=== PATIENT | female | born 1940 | race Two or more races ===

== ENCOUNTER 2020-06-02 12:33 | Emergency (ER) | payer OTHER ==
[~2020-06-02] VITALS: Ht 154.9 cm; Wt 40.8 kg
[2020-06-02 13:10] VITALS: BP 147/72
[2020-06-02 13:59] LABS: Basophils # (auto) 0.1 10 ^3/uL (0-0.2); Basophils % (auto) 0.9 % (0.0-2.0); Eosinophils # (auto) 0.4 10 ^3/uL (0-0.8); Eosinophils % (auto) 6.3 % (0.0-7.0); Hematocrit 36.1 % (36.0-46.0); Hemoglobin 12.1 g/dL (12.2-16.2); Lymphocytes # (auto) 2.1 10 ^3/uL (0.4-5.4); Mean Corpuscular Hemoglobin 30.6 pg (28.0-32.0); Mean Corpuscular Hgb Conc. 33.4 g/dL (32.0-36.0); Mean Corpuscular Volume 91.5 fL (80.0-100.0); Monocytes # (auto) 0.5 10 ^3/uL (0-1.3); Monocytes % (auto) 7.8 % (0.0-12.0); Neutrophils # (auto) 2.8 10 ^3/uL (1.6-8.6); Nucleated Red Blood Cells % 0.1 %; Platelet Count (auto) 380 10^3/uL (140-450); Red Blood Cells 3.95 10^6/uL (4.0-5.20); Red Cell Distribution Width 13.9 % (11.8-14.3); White Blood Cell 5.8 10^3/uL (4.4-10.8)
[2020-06-02 14:16] LABS: Albumin 3.8 g/dL (3.4-5.0); BUN/Creatinine Ratio 9.3; Calcium 8.8 mg/dL (8.5-10.1)
[2020-06-02 14:19] LABS: Bilirubin, Total 0.7 mg/dL (0.2-1.0); Total Protein 6.7 g/dL (6.4-8.2)
== END 2020-06-02 16:20 | disposition home or self-care (01) ==
LOC: ER 12:33
DX: M79.605 Pain in left leg (principal); J44.9 Chronic obstructive pulmonary disease, unspecified; E78.5 Hyperlipidemia, unspecified; I10 Essential (primary) hypertension; Z87.891 Personal history of nicotine dependence
CPT/HCPCS: 36415; 80053; 84484; 85025; 93970

== ENCOUNTER 2020-10-11 17:05 | Emergency (ER) | payer OTHER ==
[~2020-10-11] VITALS: Ht 154.9 cm; Wt 49.9 kg
[2020-10-11 17:21] VITALS: BP 104/72
[2020-10-11] MEDS ORDERED: cefTRIAXone SOD 1,000 MG VL ONE (17:40)
[2020-10-11] MEDS ORDERED: cefTRIAXone W LIDOCAINE 1 GM IM IM ONE (17:45)
[2020-10-11] MEDS ORDERED: CLINDAMYCIN 600 MG/4 ML VL IM ONE ×2 (17:45→18:00)
[2020-10-11] MEDS ORDERED: LIDOCAINE 1% HCL (LOCAL ANESTH.) INJ 20ML MDV ONE (17:53)
== END 2020-10-11 18:17 | disposition home or self-care (01) ==
LOC: ER 17:08
DX: L03.115 Cellulitis of right lower limb (principal); J44.9 Chronic obstructive pulmonary disease, unspecified; E78.5 Hyperlipidemia, unspecified; I10 Essential (primary) hypertension; Z87.891 Personal history of nicotine dependence; Z88.0 Allergy status to penicillin
CPT/HCPCS: 96372; 99284; J0696; J2001

== ENCOUNTER 2021-09-06 09:53 | Emergency (ER) | payer OTHER ==
[~2021-09-06] VITALS: Ht 157.5 cm; Wt 41.7 kg
[2021-09-06] MEDS ORDERED: IPRATROPIUM BROM 0.5 MG/2.5ML INH SOL HHN ONE (10:30)
[2021-09-06] MEDS ORDERED: methylPREDNISolone SOD SUCC 125 MG/2 ML VL IV ONE (10:30)
[2021-09-06] MEDS ORDERED: ALBUTEROL SULF 2.5 MG/0.5ML(0.5%) NEB SOLN HHN ONE (10:30)
[2021-09-06 10:32] LABS: Eosinophils # (auto) 0.1 10 ^3/uL (0-0.8); Eosinophils % (auto) 1.6 % (0.0-7.0); Lymphocytes # (auto) 1.2 10 ^3/uL (0.4-5.4); Monocytes # (auto) 0.4 10 ^3/uL (0-1.3)
[2021-09-06 10:33] LABS: Basophils # (auto) 0.1 10 ^3/uL (0-0.2); Basophils % (auto) 0.8 % (0.0-2.0); Hematocrit 31.1 % (36.0-46.0); Lymphocytes % (auto) 18.8 % (10.0-50.0); Mean Corpuscular Hemoglobin 24.8 pg (28.0-32.0); Mean Corpuscular Hgb Conc. 32.2 g/dL (32.0-36.0); Mean Corpuscular Volume 76.8 fL (80.0-100.0); Monocytes % (auto) 6.6 % (0.0-12.0); Neutrophils # (auto) 4.8 10 ^3/uL (1.6-8.6); Neutrophils % (auto) 72.2 % (37.0-80.0); Nucleated Red Blood Cells % 0.1 %; Red Blood Cells 4.05 10^6/uL (4.0-5.20); Red Cell Distribution Width 16.1 % (11.8-14.3); White Blood Cell 6.6 10^3/uL (4.4-10.8)
[2021-09-06 10:49] LABS: Albumin 3.6 g/dL (3.4-5.0); Calcium 8.9 mg/dL (8.5-10.1); Magnesium 2.3 mg/dL (1.6-2.6); Potassium 3.8 mmol/L (3.5-5.1)
[2021-09-06 10:54] LABS: BUN/Creatinine Ratio 6.3; Bilirubin, Total 0.7 mg/dL (0.2-1.0); Total Protein 6.8 g/dL (6.4-8.2)
[2021-09-06 11:56] LABS: Urine Bacteria NONE SEEN /hpf (None Seen); Urine Blood TRACE /uL (Negative); Urine Specific Gravity 1.004 (1.001-1.035); Urine WBC 2 /hpf (0 - 5)
[2021-09-06 12:43] VITALS: BP 116/63
[2021-09-06] MEDS ORDERED: LORazepam 2MG/ML-1ML VIAL IV ONE (13:00)
[2021-09-06] MEDS ORDERED: METH4PAK PO (13:04)
== END 2021-09-06 13:03 | disposition home or self-care (01) ==
LOC: ER 09:53 → EDBD 09:53 → ER 13:03
DX: J44.1 Chronic obstructive pulmonary disease with (acute) exacerbation (principal); F41.9 Anxiety disorder, unspecified; E78.5 Hyperlipidemia, unspecified; Z90.710 Acquired absence of both cervix and uterus
CPT/HCPCS: 36415; 71045; 80053; 81001; 83605; 83735; 83880; 84484; 85025; 87040; 93005; 94644; 96374; 99285; J2930; J7644

== ENCOUNTER 2022-01-13 02:34 | Inpatient (IN) | payer OTHER ==
[~2022-01-13] VITALS: Ht 154.9 cm; Wt 44.6 kg
[2022-01-13] VITALS (10 sets, daily range): BP systolic 78–168; BP diastolic 37–91
[~2022-01-13 02:34] MED LIST: METH4PAK PO
[2022-01-13 03:16] LABS: Basophils # (auto) 0 10 ^3/uL (0-0.2); Eosinophils # (auto) 0.1 10 ^3/uL (0-0.8); Lymphocytes # (auto) 1.3 10 ^3/uL (0.4-5.4); Monocytes # (auto) 0.6 10 ^3/uL (0-1.3); White Blood Cell 4.4 10^3/uL (4.4-10.8)
[2022-01-13 03:17] LABS: Basophils % (auto) 0.9 % (0.0-2.0); Eosinophils % (auto) 1.8 % (0.0-7.0); Hematocrit 21.3 % (36.0-46.0); Lymphocytes % (auto) 29.9 % (10.0-50.0); Mean Corpuscular Hemoglobin 21.7 pg (28.0-32.0); Mean Corpuscular Volume 72.3 fL (80.0-100.0); Monocytes % (auto) 14.1 % (0.0-12.0); Neutrophils # (auto) 2.3 10 ^3/uL (1.6-8.6); Neutrophils % (auto) 53.3 % (37.0-80.0); Red Blood Cells 2.95 10^6/uL (4.0-5.20); Red Cell Distribution Width 15.1 % (11.8-14.3)
[2022-01-13 03:26] LABS: Hemoglobin 6.4 g/dL (12.2-16.2)
[2022-01-13 03:30] LABS: INR 1.02 (0.9-1.15); Partial Thromboplastin Time 28.8 sec (24.6-33.4)
[2022-01-13 03:34] LABS: Albumin 3.6 g/dL (3.4-5.0); BUN/Creatinine Ratio 11.1; Calcium 8.5 mg/dL (8.5-10.1); Magnesium 2.4 mg/dL (1.6-2.6); Potassium 3.5 mmol/L (3.5-5.1)
[2022-01-13 03:37] LABS: Bilirubin, Total 0.4 mg/dL (0.2-1.0); Total Protein 6.3 g/dL (6.4-8.2)
[2022-01-13] MEDS ORDERED: IPRATROPIUM BROM 0.5 MG/2.5ML INH SOL NEB ONE ×2 (03:45→06:15)
[2022-01-13] MEDS ORDERED: DexAMETHasone SOD PHOS 10MG/1ML VIAL INJ IV ONE (03:45)
[2022-01-13] MEDS ORDERED: ALBUTEROL SULF 2.5 MG/0.5ML(0.5%) NEB SOLN NEB ONE ×2 (03:45→06:15)
[2022-01-13] MEDS: MAGNESIUM SULFATE 1GM/100ML 100 ML IV SCH ×2 (04:12→06:41)
[2022-01-13 05:43] LABS: Urine Bacteria NONE SEEN /hpf (None Seen); Urine Blood Negative /uL (Negative); Urine Specific Gravity 1.019 (1.001-1.035); Urine WBC 6 /hpf (0 - 5)
[2022-01-13] MEDS ORDERED: LORazepam 2MG/ML-1ML VIAL IV ONE ×3 (06:45→15:00)
[2022-01-13] MEDS ORDERED: LORazepam 0.5 MG TAB PO ONE (11:30)
[2022-01-13] MEDS ORDERED: NITROGLYCERIN 0.4 MG SL TAB SL PRN (12:15)
[2022-01-13] MEDS ORDERED: MORPHINE SULFATE INJ 2 MG/ml SYRG IV PRN (12:15)
[2022-01-13] MEDS ORDERED: PANTOPRAZOLE 40 MG/10 ML VIAL INJ IV ONE (12:30)
[2022-01-13] MEDS ORDERED: AZITHROMYCIN 500MG/ 250ML 250 ML IV ONE (12:30)
[2022-01-13] MEDS ORDERED: LEVO75TA6 PO (12:52)
[2022-01-13] MEDS ORDERED: hydrALAZINE HCL 20 MG/ML VL IV PRN (13:00)
[2022-01-13] MEDS: SODIUM CHLORIDE 0.9% 1,000 ML IV SCH (13:03)
[2022-01-13] MEDS ORDERED: HALOPERIDOL LACTATE 5 MG/ML INJ VIAL ONE (13:27)
[2022-01-13] MEDS ORDERED: HALOPERIDOL LACTATE 5 MG/ML INJ VIAL IM ONE (13:45)
[2022-01-13 13:50] LABS: Cholesterol 221 mg/dL (< 200); HDL Cholesterol 80 mg/dL (40-59); LDL Cholesterol 131 mg/dL (< 100); Triglycerides 82 mg/dL (< 150)
[2022-01-13] MEDS: metroNIDAZOLE 500MG/100ML 100 ML IV SCH ×2 (14:39→22:21)
[2022-01-13] MEDS ORDERED: SUCCINYLCHOLINE CHLORIDE 20 MG/ML 10ML VIAL IV ONE (17:15)
[2022-01-13] MEDS ORDERED: ETOMIDATE (2MG/ML) 20ML VIAL IV ONE (17:15)
[2022-01-13] MEDS ORDERED: PROPOFOL 100 ML IV ONE (17:25)
[2022-01-13] MEDS ORDERED: ROCURONIUM 10MG/ML 10ML VIAL IV ONE (17:30)
[2022-01-13] MEDS ORDERED: PROPOFOL 100 ML IV SCH (17:30)
[2022-01-13] MEDS ORDERED: ALBUTEROL SULF 2.5 MG/0.5ML(0.5%) NEB SOLN NEB SCH (18:00)
[2022-01-13] MEDS ORDERED: IPRATROPIUM BROM 0.5 MG/2.5ML INH SOL NEB SCH (18:00)
[2022-01-13 19:19] LABS: Hematocrit 30.3 % (36.0-46.0); Hemoglobin 9.5 g/dL (12.2-16.2)
[2022-01-13] MEDS: PANTOPRAZOLE 40 MG/10 ML VIAL INJ IV SCH (22:20)
[2022-01-13] MEDS: methylPREDNISolone SOD SUCC 125 MG/2 ML VL IV SCH (22:20)
[2022-01-14] VITALS (20 sets, daily range): BP systolic 93–130; BP diastolic 49–66
[2022-01-14] MEDS: IPRATROPIUM BROM 0.5 MG/2.5ML INH SOL NEB SCH ×4 (00:18→18:20)
[2022-01-14] MEDS: ALBUTEROL SULF 2.5 MG/0.5ML(0.5%) NEB SOLN NEB SCH ×4 (00:18→18:20)
[2022-01-14] MEDS ORDERED: MIDAZOLAM DRIP 50 mg/50mL 50 ML IV ONE (03:25)
[2022-01-14] MEDS: MIDAZOLAM DRIP 50 mg/50mL 50 ML IV SCH ×3 (03:29→21:12)
[2022-01-14] MEDS ORDERED: ACETAMINOPHEN 650 MG RECT SUPP PR PRN (05:15)
[2022-01-14] MEDS: SODIUM CHLORIDE 0.9% 1,000 ML IV SCH ×2 (05:43→22:15)
[2022-01-14] MEDS: metroNIDAZOLE 500MG/100ML 100 ML IV SCH (06:08)
[2022-01-14 07:14] LABS: Basophils # (auto) 0 10 ^3/uL (0-0.2); Basophils % (auto) 0.1 % (0.0-2.0); Eosinophils # (auto) 0 10 ^3/uL (0-0.8); Hematocrit 25.4 % (36.0-46.0); Hemoglobin 7.9 g/dL (12.2-16.2); Lymphocytes # (auto) 0.7 10 ^3/uL (0.4-5.4); Lymphocytes % (auto) 9.9 % (10.0-50.0); Mean Corpuscular Hemoglobin 23.2 pg (28.0-32.0); Mean Corpuscular Hgb Conc. 31.2 g/dL (32.0-36.0); Mean Corpuscular Volume 74.4 fL (80.0-100.0); Monocytes # (auto) 0.8 10 ^3/uL (0-1.3); Monocytes % (auto) 10.4 % (0.0-12.0); Neutrophils # (auto) 5.9 10 ^3/uL (1.6-8.6); Neutrophils % (auto) 79.6 % (37.0-80.0); Nucleated Red Blood Cells % 0.1 %; Red Blood Cells 3.42 10^6/uL (4.0-5.20); Red Cell Distribution Width 16.4 % (11.8-14.3); White Blood Cell 7.4 10^3/uL (4.4-10.8)
[2022-01-14 07:17] LABS: Albumin 3.1 g/dL (3.4-5.0); BUN/Creatinine Ratio 20.4; Bilirubin, Total 0.6 mg/dL (0.2-1.0); Potassium 3.8 mmol/L (3.5-5.1); Total Protein 5.9 g/dL (6.4-8.2)
[2022-01-14] MEDS: fentaNYL Drip 2500mCg/250mlNS 250 ML IV SCH ×2 (08:06→09:58)
[2022-01-14] MEDS: PANTOPRAZOLE 40 MG/10 ML VIAL INJ IV SCH ×2 (10:40→22:16)
[2022-01-14] MEDS: methylPREDNISolone SOD SUCC 125 MG/2 ML VL IV SCH (10:40)
[2022-01-14] MEDS: AZITHROMYCIN 500MG/ 250ML 250 ML IV SCH (10:41)
[2022-01-14] MEDS: LEVOTHYROXINE SODIUM 50 MCG TAB PO SCH (10:41)
[2022-01-14] MEDS: CEFEPIME 2 GM in SODIUM CHL 0.9% 50 ML IV SCH ×2 (13:46→22:16)
[2022-01-14] MEDS: methylPREDNISolone SOD SUCC 40 MG/ML VL IV SCH (22:16)
[2022-01-15] VITALS (105 sets, daily range): BP systolic 83–118; BP diastolic 37–61
[2022-01-15] MEDS: MIDAZOLAM DRIP 50 mg/50mL 50 ML IV SCH ×4 (04:20→21:50)
[2022-01-15 04:22] LABS: Calcium 8.1 mg/dL (8.5-10.1); Potassium 4.1 mmol/L (3.5-5.1)
[2022-01-15 04:25] LABS: BUN/Creatinine Ratio 34.1
[2022-01-15 04:33] LABS: % Iron Saturation 2.3 % (15-50)
[2022-01-15 04:34] LABS: Basophils # (auto) 0 10 ^3/uL (0-0.2); Basophils % (auto) 0.3 % (0.0-2.0); Eosinophils # (auto) 0 10 ^3/uL (0-0.8); Eosinophils % (auto) 0.1 % (0.0-7.0); Hematocrit 27.2 % (36.0-46.0); Lymphocytes # (auto) 0.5 10 ^3/uL (0.4-5.4); Lymphocytes % (auto) 6.7 % (10.0-50.0); Mean Corpuscular Hemoglobin 23.5 pg (28.0-32.0); Mean Corpuscular Hgb Conc. 29.4 g/dL (32.0-36.0); Mean Corpuscular Volume 79.9 fL (80.0-100.0); Monocytes # (auto) 0.5 10 ^3/uL (0-1.3); Neutrophils # (auto) 6.7 10 ^3/uL (1.6-8.6); Neutrophils % (auto) 85.9 % (37.0-80.0); Nucleated Red Blood Cells % 0.1 %; Red Blood Cells 3.41 10^6/uL (4.0-5.20); White Blood Cell 7.8 10^3/uL (4.4-10.8)
[2022-01-15] MEDS: CEFEPIME 2 GM in SODIUM CHL 0.9% 50 ML IV SCH ×3 (05:38→22:15)
[2022-01-15] MEDS: IPRATROPIUM BROM 0.5 MG/2.5ML INH SOL NEB SCH ×4 (06:55→18:18)
[2022-01-15] MEDS: ALBUTEROL SULF 2.5 MG/0.5ML(0.5%) NEB SOLN NEB SCH ×4 (06:55→18:18)
[2022-01-15] MEDS: fentaNYL Drip 2500mCg/250mlNS 250 ML IV SCH (07:25)
[2022-01-15] MEDS ORDERED: ACETAMINOPHEN 650 mg PER 20.3 mL UD GT PRN (09:45)
[2022-01-15] MEDS ORDERED: Jevity 1.2 Cal/Fiber 1 Liter GT SCH (09:45)
[2022-01-15] MEDS: AZITHROMYCIN 500MG/ 250ML 250 ML IV SCH (10:02)
[2022-01-15] MEDS: PANTOPRAZOLE 40 MG/10 ML VIAL INJ IV SCH ×2 (10:02→22:10)
[2022-01-15] MEDS: methylPREDNISolone SOD SUCC 40 MG/ML VL IV SCH ×2 (10:02→22:10)
[2022-01-15] MEDS: LEVOTHYROXINE SODIUM 50 MCG TAB PO SCH (10:02)
[2022-01-15] MEDS: SODIUM CHLORIDE 0.9% 1,000 ML IV SCH (14:30)
[2022-01-15] MEDS ORDERED: UMEC1AER IN (14:53)
[2022-01-16] VITALS (99 sets, daily range): BP systolic 94–181; BP diastolic 46–104
[2022-01-16] MEDS: IPRATROPIUM BROM 0.5 MG/2.5ML INH SOL NEB SCH ×4 (00:08→18:29)
[2022-01-16] MEDS: ALBUTEROL SULF 2.5 MG/0.5ML(0.5%) NEB SOLN NEB SCH ×4 (00:08→18:29)
[2022-01-16 04:23] LABS: Basophils # (auto) 0 10 ^3/uL (0-0.2); Basophils % (auto) 0.1 % (0.0-2.0); Eosinophils # (auto) 0 10 ^3/uL (0-0.8); Hemoglobin 8.6 g/dL (12.2-16.2); Mean Corpuscular Hemoglobin 23.6 pg (28.0-32.0); Monocytes # (auto) 0.3 10 ^3/uL (0-1.3); Monocytes % (auto) 3.8 % (0.0-12.0); Red Blood Cells 3.63 10^6/uL (4.0-5.20); White Blood Cell 8.6 10^3/uL (4.4-10.8)
[2022-01-16 04:26] LABS: Hematocrit 27.8 % (36.0-46.0); Lymphocytes # (auto) 0.5 10 ^3/uL (0.4-5.4); Lymphocytes % (auto) 5.4 % (10.0-50.0); Mean Corpuscular Hgb Conc. 30.8 g/dL (32.0-36.0); Mean Corpuscular Volume 76.5 fL (80.0-100.0); Neutrophils # (auto) 7.8 10 ^3/uL (1.6-8.6); Neutrophils % (auto) 90.7 % (37.0-80.0); Nucleated Red Blood Cells % 0.1 %; Red Cell Distribution Width 17.6 % (11.8-14.3)
[2022-01-16 04:28] LABS: BUN/Creatinine Ratio 36.4; Calcium 8.5 mg/dL (8.5-10.1); Potassium 4.6 mmol/L (3.5-5.1)
[2022-01-16] MEDS: CEFEPIME 2 GM in SODIUM CHL 0.9% 50 ML IV SCH ×2 (05:28→13:47)
[2022-01-16] MEDS: fentaNYL Drip 2500mCg/250mlNS 250 ML IV SCH (06:50)
[2022-01-16] MEDS: PANTOPRAZOLE 40 MG/10 ML VIAL INJ IV SCH ×2 (10:03→22:38)
[2022-01-16] MEDS: methylPREDNISolone SOD SUCC 40 MG/ML VL IV SCH ×2 (10:03→22:38)
[2022-01-16] MEDS: AZITHROMYCIN 500MG/ 250ML 250 ML IV SCH (10:04)
[2022-01-16] MEDS: LEVOTHYROXINE SODIUM 50 MCG TAB PO SCH (10:04)
[2022-01-16] MEDS: SODIUM CHLORIDE 0.9% 1,000 ML IV SCH (13:56)
[2022-01-16] MEDS ORDERED: EPINEPHrine HCL 0.5 ML NEB ONE (14:07)
[2022-01-16] MEDS ORDERED: EPINEPHrine HCL 0.5 ML NEB NEB ONE (14:15)
[2022-01-16] MEDS: ALBUTEROL SULF 2.5 MG/0.5ML(0.5%) NEB SOLN NEB PRN (14:28)
[2022-01-16] MEDS: IPRATROPIUM BROM 0.5 MG/2.5ML INH SOL NEB PRN (14:28)
[2022-01-16] MEDS ORDERED: MORPHINE SULFATE INJ 2 MG/ml SYRG ONE (14:40)
[2022-01-16] MEDS ORDERED: MORPHINE SULFATE INJ 2 MG/ml SYRG IV ONE (14:45)
[2022-01-16] MEDS ORDERED: AMIODARONE 450mg/250ml AE 250 ML IV ONE (15:54)
[2022-01-16] MEDS ORDERED: AMIODARONE HCL 150 MG in D5W 5% 100 ML IV ONE (16:00)
[2022-01-16] MEDS ORDERED: AMIODARONE 450mg/250ml AE 250 ML IV SCH (16:15)
[2022-01-16] MEDS ORDERED: AMIODARONE HCL (50 MG/ ML) 3 ML VIAL IV ONE (16:15)
[2022-01-16] MEDS: AMIODARONE 450mg/250ml AE 250 ML IV SCH (22:26)
[2022-01-17] VITALS (72 sets, daily range): BP systolic 111–180; BP diastolic 43–91
[2022-01-17] MEDS: CEFEPIME 2 GM in SODIUM CHL 0.9% 50 ML IV SCH ×3 (00:13→17:37)
[2022-01-17] MEDS: ALBUTEROL SULF 2.5 MG/0.5ML(0.5%) NEB SOLN NEB SCH ×4 (00:20→18:12)
[2022-01-17] MEDS: IPRATROPIUM BROM 0.5 MG/2.5ML INH SOL NEB SCH ×4 (00:20→18:12)
[2022-01-17] MEDS ORDERED: ONDANSETRON HCL 4 MG/2 ML VIAL ONE (00:34)
[2022-01-17] MEDS: ONDANSETRON HCL 4 MG/2 ML VIAL IV PRN ×2 (00:43→21:04)
[2022-01-17] MEDS: SODIUM CHLORIDE 0.9% 1,000 ML IV SCH ×2 (00:44→16:45)
[2022-01-17] MEDS: MIDAZOLAM DRIP 50 mg/50mL 50 ML IV SCH ×3 (01:30→20:47)
[2022-01-17 04:00] LABS: Basophils # (auto) 0 10 ^3/uL (0-0.2); Eosinophils # (auto) 0 10 ^3/uL (0-0.8); Lymphocytes # (auto) 0.3 10 ^3/uL (0.4-5.4); Lymphocytes % (auto) 2.1 % (10.0-50.0); Monocytes # (auto) 0.7 10 ^3/uL (0-1.3); Neutrophils # (auto) 12.1 10 ^3/uL (1.6-8.6); Nucleated Red Blood Cells % 0.1 %; Red Blood Cells 3.56 10^6/uL (4.0-5.20)
[2022-01-17 04:03] LABS: Hematocrit 27.7 % (36.0-46.0); Hemoglobin 8.3 g/dL (12.2-16.2); Mean Corpuscular Hemoglobin 23.2 pg (28.0-32.0); Mean Corpuscular Hgb Conc. 29.9 g/dL (32.0-36.0); Mean Corpuscular Volume 77.6 fL (80.0-100.0); Neutrophils % (auto) 92.9 % (37.0-80.0); Red Cell Distribution Width 18.2 % (11.8-14.3)
[2022-01-17 04:20] LABS: Potassium 4.6 mmol/L (3.5-5.1)
[2022-01-17] MEDS ORDERED: MORPHINE SULFATE INJ 2 MG/ml SYRG IV ONE ×2 (05:30→22:00)
[2022-01-17] MEDS ORDERED: FUROSEMIDE 40 MG/4 ML VIAL IV ONE (07:15)
[2022-01-17] MEDS: fentaNYL Drip 2500mCg/250mlNS 250 ML IV SCH (07:30)
[2022-01-17] MEDS ORDERED: ETOMIDATE (2MG/ML) 20ML VIAL IV ONE (07:55)
[2022-01-17] MEDS ORDERED: fentaNYL Drip 2500mCg/250mlNS 250 ML IV ONE (07:55)
[2022-01-17] MEDS ORDERED: SUCCINYLCHOLINE CHLORIDE 20 MG/ML 10ML VIAL IV ONE (07:56)
[2022-01-17] MEDS ORDERED: LORazepam 2MG/ML-1ML VIAL IV ONE (09:15)
[2022-01-17] MEDS ORDERED: LORazepam 2MG/ML-1ML VIAL ONE (09:16)
[2022-01-17] MEDS ORDERED: FUROSEMIDE 20 MG/2 ML VIAL IV ONE (09:30)
[2022-01-17] MEDS: PANTOPRAZOLE 40 MG/10 ML VIAL INJ IV SCH ×2 (09:36→22:19)
[2022-01-17] MEDS: methylPREDNISolone SOD SUCC 40 MG/ML VL IV SCH ×2 (09:36→22:20)
[2022-01-17] MEDS: LEVOTHYROXINE SODIUM 50 MCG TAB PO SCH (10:00)
[2022-01-17] MEDS: AMIODARONE 450mg/250ml AE 250 ML IV SCH (12:45)
[2022-01-17] MEDS ORDERED: HYALURONIDASE 150 UNIT/1 ML SUBCUT ONE ×2 (14:30→14:45)
[2022-01-17 15:27] LABS: INR 1.17 (0.9-1.15); Partial Thromboplastin Time 25.9 sec (24.6-33.4)
[2022-01-17] MEDS ORDERED: LIDOCAINE 1% (LOCAL ANESTH.) PF 5ml SDV ID ONE (16:45)
[2022-01-17] MEDS ORDERED: ACETAMINOPHEN 650 MG RECT SUPP PR PRN (18:45)
[2022-01-17] MEDS ORDERED: DICLOFENAC GEL TOP PRN (18:45)
[2022-01-17] MEDS: SODIUM CHLOR 0.9% PF (SALINE LOCK) 10ML VIAL/SYR IV SCH (22:19)
[2022-01-18] VITALS (32 sets, daily range): BP systolic 106–151; BP diastolic 50–75
[2022-01-18] MEDS: ALBUTEROL SULF 2.5 MG/0.5ML(0.5%) NEB SOLN NEB SCH ×4 (00:21→19:18)
[2022-01-18] MEDS: IPRATROPIUM BROM 0.5 MG/2.5ML INH SOL NEB SCH ×4 (00:21→19:19)
[2022-01-18] MEDS: CEFEPIME 2 GM in SODIUM CHL 0.9% 50 ML IV SCH ×2 (02:22→06:00)
[2022-01-18] MEDS: fentaNYL Drip 2500mCg/250mlNS 250 ML IV SCH (07:30)
[2022-01-18] MEDS: MIDAZOLAM DRIP 50 mg/50mL 50 ML IV SCH (07:30)
[2022-01-18] MEDS: AMIODARONE 450mg/250ml AE 250 ML IV SCH (07:30)
[2022-01-18] MEDS: SODIUM CHLOR 0.9% PF (SALINE LOCK) 10ML VIAL/SYR IV SCH (09:52)
[2022-01-18] MEDS: PANTOPRAZOLE 40 MG/10 ML VIAL INJ IV SCH (09:52)
[2022-01-18] MEDS: methylPREDNISolone SOD SUCC 40 MG/ML VL IV SCH (09:52)
[2022-01-18] MEDS: LEVOTHYROXINE SODIUM 50 MCG TAB PO SCH (09:53)
[2022-01-18] MEDS ORDERED: ENOXAPARIN SOD 40 MG/0.4 ML SYRINGE SC ONE (11:15)
[2022-01-18] MEDS ORDERED: METOPROLOL TARTRATE 50 MG TAB PO ONE (11:15)
[2022-01-18] MEDS ORDERED: levoFLOXacin 250 MG TAB PO ONE (11:15)
[2022-01-18] MEDS ORDERED: NICOTINE 14 MG/24HR TOPICAL PATCH TD ONE (11:45)
[2022-01-18] MEDS ORDERED: NICOTINE 7MG/24HR TOPICAL PATCH TD ONE (13:15)
[2022-01-18] MEDS ORDERED: DICLOFENAC GEL TOP PRN (13:45)
[2022-01-18] MEDS: METOPROLOL TARTRATE 50 MG TAB PO SCH ×2 (21:54→22:00)
[2022-01-18] MEDS: PANTOPRAZOLE 40 MG TAB PO SCH ×2 (21:54→22:00)
[2022-01-18] MEDS ORDERED: QUEtiapine FUMARATE 25 MG TAB PO ONE (22:00)
[2022-01-19] MEDS: IPRATROPIUM BROM 0.5 MG/2.5ML INH SOL NEB SCH ×3 (00:16→06:57)
[2022-01-19] MEDS: ALBUTEROL SULF 2.5 MG/0.5ML(0.5%) NEB SOLN NEB SCH ×3 (00:16→06:57)
[2022-01-19 05:00] VITALS: BP 147/74
[2022-01-19 06:51] LABS: BUN/Creatinine Ratio 50.9; Calcium 8.5 mg/dL (8.5-10.1); Potassium 3.8 mmol/L (3.5-5.1)
[2022-01-19 07:20] LABS: Basophils # (auto) 0 10 ^3/uL (0-0.2); Eosinophils # (auto) 0 10 ^3/uL (0-0.8); Lymphocytes # (auto) 0.5 10 ^3/uL (0.4-5.4); Nucleated Red Blood Cells % 0.2 %
[2022-01-19 07:21] LABS: Hemoglobin 7.7 g/dL (12.2-16.2); Lymphocytes % (auto) 4.9 % (10.0-50.0); Mean Corpuscular Hemoglobin 23.3 pg (28.0-32.0); Mean Corpuscular Volume 75.3 fL (80.0-100.0); Monocytes # (auto) 1.1 10 ^3/uL (0-1.3); Monocytes % (auto) 11.1 % (0.0-12.0); Neutrophils # (auto) 8.1 10 ^3/uL (1.6-8.6); Red Blood Cells 3.32 10^6/uL (4.0-5.20); Red Cell Distribution Width 17.8 % (11.8-14.3); White Blood Cell 9.6 10^3/uL (4.4-10.8)
[2022-01-19 08:48] VITALS: BP 117/56
[2022-01-19] MEDS ORDERED: NICOTINE 14 MG/24HR TOPICAL PATCH TD SCH (10:00)
[2022-01-19] MEDS: levoFLOXacin 250 MG TAB PO SCH (11:07)
[2022-01-19] MEDS: LEVOTHYROXINE SODIUM 50 MCG TAB PO SCH (11:07)
[2022-01-19] MEDS: PANTOPRAZOLE 40 MG TAB PO SCH ×2 (11:08→23:00)
[2022-01-19] MEDS: predniSONE 20 MG TAB PO SCH (11:08)
[2022-01-19] MEDS: METOPROLOL TARTRATE 50 MG TAB PO SCH ×2 (11:09→23:06)
[2022-01-19] MEDS: ENOXAPARIN SOD 40 MG/0.4 ML SYRINGE SC SCH (11:10)
[2022-01-19] MEDS: NICOTINE 7MG/24HR TOPICAL PATCH TD SCH (11:10)
[2022-01-19 12:40] VITALS: BP 105/60
[2022-01-19 16:26] VITALS: BP 134/68
[2022-01-19 21:35] VITALS: BP 122/67
[2022-01-20 05:00] VITALS: BP 122/67
[2022-01-20 06:15] LABS: Basophils # (auto) 0 10 ^3/uL (0-0.2); Eosinophils # (auto) 0 10 ^3/uL (0-0.8); Hemoglobin 7.8 g/dL (12.2-16.2); Monocytes # (auto) 1.1 10 ^3/uL (0-1.3); Neutrophils # (auto) 9.1 10 ^3/uL (1.6-8.6); Nucleated Red Blood Cells % 0.1 %; White Blood Cell 11.1 10^3/uL (4.4-10.8)
[2022-01-20 06:18] LABS: Basophils % (auto) 0.2 % (0.0-2.0); Eosinophils % (auto) 0.1 % (0.0-7.0); Hematocrit 25.4 % (36.0-46.0); Lymphocytes # (auto) 0.8 10 ^3/uL (0.4-5.4); Lymphocytes % (auto) 7.6 % (10.0-50.0); Mean Corpuscular Hemoglobin 22.9 pg (28.0-32.0); Mean Corpuscular Hgb Conc. 30.9 g/dL (32.0-36.0); Mean Corpuscular Volume 74.1 fL (80.0-100.0); Monocytes % (auto) 9.9 % (0.0-12.0); Neutrophils % (auto) 82.2 % (37.0-80.0); Red Blood Cells 3.42 10^6/uL (4.0-5.20); Red Cell Distribution Width 17.9 % (11.8-14.3)
[2022-01-20 06:54] LABS: Calcium 8.1 mg/dL (8.5-10.1); Potassium 3.7 mmol/L (3.5-5.1)
[2022-01-20 08:41] VITALS: BP 109/43
[2022-01-20] MEDS: METOPROLOL TARTRATE 50 MG TAB PO SCH ×2 (09:38→22:43)
[2022-01-20] MEDS: predniSONE 20 MG TAB PO SCH (09:40)
[2022-01-20] MEDS: PANTOPRAZOLE 40 MG TAB PO SCH ×2 (09:40→22:44)
[2022-01-20] MEDS: LEVOTHYROXINE SODIUM 50 MCG TAB PO SCH (09:40)
[2022-01-20] MEDS: ENOXAPARIN SOD 40 MG/0.4 ML SYRINGE SC SCH (10:00)
[2022-01-20] MEDS: NICOTINE 7MG/24HR TOPICAL PATCH TD SCH (10:00)
[2022-01-20 13:00] VITALS: BP 103/58
[2022-01-20] MEDS: APIXABAN 2.5 MG TAB PO SCH ×2 (14:49→22:43)
[2022-01-20 16:17] VITALS: BP 103/58
[2022-01-20 17:00] VITALS: BP 118/54
[2022-01-20] MEDS: ALBUTEROL SULF 2.5 MG/0.5ML(0.5%) NEB SOLN NEB PRN (19:33)
[2022-01-20] MEDS: BUDESONIDE (INHALATION) 0.5 MG/2 ML NEB NEB SCH (19:34)
[2022-01-20] MEDS: IPRATROPIUM BROM 0.5 MG/2.5ML INH SOL NEB PRN (19:34)
[2022-01-20 20:10] VITALS: BP 126/58
[2022-01-21] VITALS (8 sets, daily range): BP systolic 98–140; BP diastolic 52–64
[2022-01-21 06:00] LABS: Basophils # (auto) 0 10 ^3/uL (0-0.2); Basophils % (auto) 0.1 % (0.0-2.0); Eosinophils # (auto) 0 10 ^3/uL (0-0.8); Eosinophils % (auto) 0.3 % (0.0-7.0); Neutrophils # (auto) 8.2 10 ^3/uL (1.6-8.6); Nucleated Red Blood Cells % 0.1 %
[2022-01-21 06:03] LABS: Hematocrit 27.6 % (36.0-46.0); Hemoglobin 8.5 g/dL (12.2-16.2); Lymphocytes # (auto) 0.8 10 ^3/uL (0.4-5.4); Lymphocytes % (auto) 8.2 % (10.0-50.0); Mean Corpuscular Hemoglobin 22.9 pg (28.0-32.0); Mean Corpuscular Hgb Conc. 30.7 g/dL (32.0-36.0); Mean Corpuscular Volume 74.6 fL (80.0-100.0); Monocytes # (auto) 0.9 10 ^3/uL (0-1.3); Monocytes % (auto) 9.2 % (0.0-12.0); Neutrophils % (auto) 82.2 % (37.0-80.0); Red Cell Distribution Width 17.8 % (11.8-14.3)
[2022-01-21 06:52] LABS: BUN/Creatinine Ratio 36.4; Calcium 8.1 mg/dL (8.5-10.1); Potassium 3.4 mmol/L (3.5-5.1)
[2022-01-21] MEDS: predniSONE 20 MG TAB PO SCH (09:35)
[2022-01-21] MEDS: levoFLOXacin 250 MG TAB PO SCH (09:35)
[2022-01-21] MEDS: APIXABAN 2.5 MG TAB PO SCH ×2 (09:36→23:26)
[2022-01-21] MEDS: LEVOTHYROXINE SODIUM 50 MCG TAB PO SCH (09:36)
[2022-01-21] MEDS: PANTOPRAZOLE 40 MG TAB PO SCH ×2 (09:36→23:26)
[2022-01-21] MEDS: METOPROLOL TARTRATE 50 MG TAB PO SCH ×2 (09:38→22:00)
[2022-01-21] MEDS: NICOTINE 7MG/24HR TOPICAL PATCH TD SCH (10:00)
[2022-01-21] MEDS: IPRATROPIUM BROM 0.5 MG/2.5ML INH SOL NEB PRN ×2 (10:23→19:28)
[2022-01-21] MEDS: BUDESONIDE (INHALATION) 0.5 MG/2 ML NEB NEB SCH ×2 (10:23→19:28)
[2022-01-21] MEDS: ALBUTEROL SULF 2.5 MG/0.5ML(0.5%) NEB SOLN NEB PRN ×2 (10:23→19:28)
[2022-01-22] MEDS: ALBUTEROL SULF 2.5 MG/0.5ML(0.5%) NEB SOLN NEB PRN (05:55)
[2022-01-22] MEDS: BUDESONIDE (INHALATION) 0.5 MG/2 ML NEB NEB SCH ×2 (05:56→19:39)
[2022-01-22] MEDS: IPRATROPIUM BROM 0.5 MG/2.5ML INH SOL NEB PRN (05:56)
[2022-01-22 06:18] LABS: Basophils # (auto) 0 10 ^3/uL (0-0.2); Eosinophils # (auto) 0 10 ^3/uL (0-0.8); Neutrophils # (auto) 11.2 10 ^3/uL (1.6-8.6); White Blood Cell 13.9 10^3/uL (4.4-10.8)
[2022-01-22 06:20] LABS: Eosinophils % (auto) 0.1 % (0.0-7.0); Hematocrit 32.5 % (36.0-46.0); Hemoglobin 9.8 g/dL (12.2-16.2); Lymphocytes # (auto) 1.2 10 ^3/uL (0.4-5.4); Lymphocytes % (auto) 8.5 % (10.0-50.0); Mean Corpuscular Hemoglobin 22.5 pg (28.0-32.0); Mean Corpuscular Hgb Conc. 30.3 g/dL (32.0-36.0); Mean Corpuscular Volume 74.4 fL (80.0-100.0); Monocytes # (auto) 1.4 10 ^3/uL (0-1.3); Monocytes % (auto) 10.4 % (0.0-12.0); Nucleated Red Blood Cells % 0.1 %; Red Blood Cells 4.37 10^6/uL (4.0-5.20); Red Cell Distribution Width 17.7 % (11.8-14.3)
[2022-01-22 06:24] VITALS: BP 105/59
[2022-01-22 06:24] LABS: BUN/Creatinine Ratio 13.5; Calcium 8.7 mg/dL (8.5-10.1); Potassium 3.5 mmol/L (3.5-5.1)
[2022-01-22 08:00] VITALS: BP 100/66
[2022-01-22] MEDS: NICOTINE 7MG/24HR TOPICAL PATCH TD SCH (10:00)
[2022-01-22] MEDS: predniSONE 20 MG TAB PO SCH (10:16)
[2022-01-22] MEDS: APIXABAN 2.5 MG TAB PO SCH ×2 (10:16→21:50)
[2022-01-22] MEDS: PANTOPRAZOLE 40 MG TAB PO SCH ×2 (10:17→21:50)
[2022-01-22] MEDS: LEVOTHYROXINE SODIUM 50 MCG TAB PO SCH (10:17)
[2022-01-22] MEDS: METOPROLOL TARTRATE 50 MG TAB PO SCH ×2 (10:17→21:52)
[2022-01-22 12:00] VITALS: BP 106/51
[2022-01-22 16:00] VITALS: BP 127/59
[2022-01-22 21:54] VITALS: BP 96/43
[2022-01-23 05:40] VITALS: BP 123/58
[2022-01-23 06:07] LABS: Basophils # (auto) 0 10 ^3/uL (0-0.2); Basophils % (auto) 0.1 % (0.0-2.0); Eosinophils # (auto) 0.1 10 ^3/uL (0-0.8); Monocytes # (auto) 1.2 10 ^3/uL (0-1.3)
[2022-01-23 06:09] LABS: Eosinophils % (auto) 0.6 % (0.0-7.0); Hematocrit 26.4 % (36.0-46.0); Hemoglobin 8.2 g/dL (12.2-16.2); Lymphocytes # (auto) 1.3 10 ^3/uL (0.4-5.4); Lymphocytes % (auto) 11.4 % (10.0-50.0); Mean Corpuscular Hemoglobin 23.2 pg (28.0-32.0); Mean Corpuscular Hgb Conc. 31.3 g/dL (32.0-36.0); Mean Corpuscular Volume 74.3 fL (80.0-100.0); Monocytes % (auto) 10.5 % (0.0-12.0); Neutrophils # (auto) 9.1 10 ^3/uL (1.6-8.6); Neutrophils % (auto) 77.4 % (37.0-80.0); Red Blood Cells 3.55 10^6/uL (4.0-5.20); Red Cell Distribution Width 18.1 % (11.8-14.3); White Blood Cell 11.7 10^3/uL (4.4-10.8)
[2022-01-23 06:27] LABS: Calcium 8.2 mg/dL (8.5-10.1)
[2022-01-23 06:31] LABS: BUN/Creatinine Ratio 18.6
[2022-01-23 06:43] LABS: Potassium 2.8 mmol/L (3.5-5.1)
[2022-01-23] MEDS ORDERED: POTASSIUM CHL 20 Meq TABLET PO ONE (07:00)
[2022-01-23] MEDS: ALBUTEROL SULF 2.5 MG/0.5ML(0.5%) NEB SOLN NEB PRN (07:13)
[2022-01-23] MEDS: BUDESONIDE (INHALATION) 0.5 MG/2 ML NEB NEB SCH ×2 (07:13→22:22)
[2022-01-23] MEDS: IPRATROPIUM BROM 0.5 MG/2.5ML INH SOL NEB PRN (07:13)
[2022-01-23 09:00] VITALS: BP 129/68
[2022-01-23] MEDS: predniSONE 20 MG TAB PO SCH (09:42)
[2022-01-23] MEDS: levoFLOXacin 250 MG TAB PO SCH (09:43)
[2022-01-23] MEDS: APIXABAN 2.5 MG TAB PO SCH ×2 (09:43→21:18)
[2022-01-23] MEDS: PANTOPRAZOLE 40 MG TAB PO SCH ×2 (09:44→21:18)
[2022-01-23] MEDS: LEVOTHYROXINE SODIUM 50 MCG TAB PO SCH (09:44)
[2022-01-23] MEDS: METOPROLOL TARTRATE 50 MG TAB PO SCH ×2 (09:46→21:20)
[2022-01-23] MEDS: NICOTINE 7MG/24HR TOPICAL PATCH TD SCH (09:46)
[2022-01-23] MEDS: FLUTICASONE PROP NASAL SPR 0.05 % (50MCG) 16GM EACHNOSTRI PRN (12:27)
[2022-01-23 12:47] VITALS: BP 182/98
[2022-01-23 15:46] VITALS: BP 131/68
[2022-01-23 16:13] VITALS: BP 131/68
[2022-01-24 05:00] VITALS: BP 131/59
[2022-01-24 05:17] LABS: Basophils # (auto) 0 10 ^3/uL (0-0.2); Basophils % (auto) 0.1 % (0.0-2.0); Eosinophils # (auto) 0.1 10 ^3/uL (0-0.8); Eosinophils % (auto) 0.5 % (0.0-7.0); Hematocrit 26.8 % (36.0-46.0); Hemoglobin 8.3 g/dL (12.2-16.2); Mean Corpuscular Hgb Conc. 31.1 g/dL (32.0-36.0); Monocytes # (auto) 1.1 10 ^3/uL (0-1.3); Red Blood Cells 3.63 10^6/uL (4.0-5.20)
[2022-01-24 05:19] LABS: Lymphocytes # (auto) 1.3 10 ^3/uL (0.4-5.4); Lymphocytes % (auto) 10.9 % (10.0-50.0); Monocytes % (auto) 9.7 % (0.0-12.0); Neutrophils # (auto) 9.1 10 ^3/uL (1.6-8.6); Neutrophils % (auto) 78.8 % (37.0-80.0); Red Cell Distribution Width 18.2 % (11.8-14.3); White Blood Cell 11.5 10^3/uL (4.4-10.8)
[2022-01-24 05:30] LABS: Potassium 3.4 mmol/L (3.5-5.1)
[2022-01-24 05:33] LABS: BUN/Creatinine Ratio 19.4
[2022-01-24] MEDS: BUDESONIDE (INHALATION) 0.5 MG/2 ML NEB NEB SCH ×2 (06:11→06:46)
[2022-01-24 08:15] VITALS: BP 134/55
[2022-01-24 08:31] VITALS: BP 134/55
[2022-01-24] MEDS: FLUTICASONE PROP NASAL SPR 0.05 % (50MCG) 16GM EACHNOSTRI PRN (08:57)
[2022-01-24] MEDS: APIXABAN 2.5 MG TAB PO SCH (10:44)
[2022-01-24] MEDS: METOPROLOL TARTRATE 50 MG TAB PO SCH (10:45)
[2022-01-24] MEDS: LEVOTHYROXINE SODIUM 50 MCG TAB PO SCH (10:48)
[2022-01-24] MEDS: NICOTINE 7MG/24HR TOPICAL PATCH TD SCH (10:49)
[2022-01-24] MEDS: predniSONE 20 MG TAB PO SCH (10:49)
[2022-01-24] MEDS: PANTOPRAZOLE 40 MG TAB PO SCH (10:49)
[2022-01-24 12:56] VITALS: BP 122/74
[2022-01-24 16:36] VITALS: BP 122/74
[2022-01-24 17:00] VITALS: BP 133/51
[2022-01-24] MEDS ORDERED: CHLORHEXIDINE 0.12% ORAL rinse 473ML MT SCH (22:00)
[2022-01-25] MEDS ORDERED: predniSONE 20 MG TAB PO SCH (10:00)
== END 2022-01-24 18:00 | DRG 871 ==
LOC: EDBD 02:34 → ER 02:34 → TELE 12:28 → ICU WEST 01-14 21:35 → TELE-WESTW 01-18 15:05
PROVIDERS: ADMIT Registered Nurse; ATTEND Nurse Practitioner Acute Care
PROC: 0BH17EZ Insertion of Endotracheal Airway into Trachea, Via Natural or Artificial Opening (ICD-10-PCS; principal; 2022-01-13)
PROC: 5A1945Z Respiratory Ventilation, 24-96 Consecutive Hours (ICD-10-PCS; 2022-01-13)
PROC: 30233N1 Transfusion of Nonautologous Red Blood Cells into Peripheral Vein, Percutaneous Approach (ICD-10-PCS; 2022-01-13)
PROC: 5A09357 Assistance with Respiratory Ventilation, Less than 24 Consecutive Hours, Continuous Positive Airway Pressure (ICD-10-PCS; 2022-01-13)
PROC: 5A09357 Assistance with Respiratory Ventilation, Less than 24 Consecutive Hours, Continuous Positive Airway Pressure (ICD-10-PCS; 2022-01-16)
PROC: 02HV33Z Insertion of Infusion Device into Superior Vena Cava, Percutaneous Approach (ICD-10-PCS; 2022-01-17)
PROC: B548ZZA Ultrasonography of Superior Vena Cava, Guidance (ICD-10-PCS; 2022-01-17)
PROC: 5A09357 Assistance with Respiratory Ventilation, Less than 24 Consecutive Hours, Continuous Positive Airway Pressure (ICD-10-PCS; 2022-01-17)
DX: A41.9 Sepsis, unspecified organism (principal); G93.41 Metabolic encephalopathy; J15.1 Pneumonia due to Pseudomonas; J96.21 Acute and chronic respiratory failure with hypoxia; J96.22 Acute and chronic respiratory failure with hypercapnia; Z99.11 Dependence on respirator [ventilator] status; R65.20 Severe sepsis without septic shock; F41.9 Anxiety disorder, unspecified; J43.9 Emphysema, unspecified; Z20.822 Contact with and (suspected) exposure to COVID-19; D50.9 Iron deficiency anemia, unspecified; F17.290 Nicotine dependence, other tobacco product, uncomplicated; I48.0 Paroxysmal atrial fibrillation; Z99.81 Dependence on supplemental oxygen; E03.9 Hypothyroidism, unspecified; E78.5 Hyperlipidemia, unspecified; I10 Essential (primary) hypertension; Z71.6 Tobacco abuse counseling; Z90.710 Acquired absence of both cervix and uterus; Z88.0 Allergy status to penicillin; Z91.041 Radiographic dye allergy status
CPT/HCPCS: 36415; 36569; 36600; 70450; 71045; 71260; 74177; 80048; 80053; 80061; 81001; 82805; 83036; 83540; 83550; 83735; 83880; 84443; 84484; 85014; 85018; 85025; 85379; 85610; 85730; 86850; 86900; 86901; 86920; 87040; 87070; 87077; 87081; 87186; 87205; 87426; 92610; 93005; 93306; 93971; 94002; 94003; 94640; 94660; 96365; 96375; 97110; 97116; 97163; 97530; 99291; C9113; G0378; J0330; J1100; J2250; J2405; J2704; J3470; J3490; J7060

== ENCOUNTER 2023-10-28 14:41 | Emergency (ER) | payer OTHER ==
[~2023-10-28] VITALS: Ht 157.5 cm; Wt 47.2 kg
[~2023-10-28 14:41] MED LIST changes: +LEVO75TA6 PO; +UMEC1AER IN
[2023-10-28 16:50] LABS: Urine Bacteria None Seen /hpf (None Seen)
[2023-10-28 17:17] LABS: Urine Blood Negative /uL (Negative); Urine Clarity Clear (Clear); Urine Color Yellow (Yellow); Urine Mucus FEW (None Seen); Urine Protein, UAD Negative (Negative); Urine Specific Gravity 1.018 (1.001-1.035); Urine Urobilinogen Normal (Negative); Urine WBC <1 /hpf (0 - 5); Urine pH 5.5 (5.0-9.0)
[2023-10-28 18:08] LABS: Basophils # (auto) 0 10 ^3/uL (0-0.2); Basophils % (auto) 0.5 % (0.0-2.0); Eosinophils # (auto) 0.1 10 ^3/uL (0-0.8); Eosinophils % (auto) 0.9 % (0.0-7.0); Hematocrit 35.5 % (36.0-46.0); Hemoglobin 12.4 g/dL (12.2-16.2); Lymphocytes # (auto) 1.1 10 ^3/uL (0.4-5.4); Lymphocytes % (auto) 16.1 % (10.0-50.0); Mean Corpuscular Hemoglobin 30.8 pg (28.0-32.0); Mean Corpuscular Hgb Conc. 34.9 g/dL (32.0-36.0); Mean Corpuscular Volume 88.2 fL (80.0-100.0); Monocytes # (auto) 0.4 10 ^3/uL (0-1.3); Monocytes % (auto) 6.2 % (0.0-12.0); Neutrophils % (auto) 76.3 % (37.0-80.0); Nucleated Red Blood Cells % 0.1 %; Platelet Count (auto) 294 10^3/uL (140-450); Red Blood Cells 4.03 10^6/uL (4.0-5.20); Red Cell Distribution Width 13.6 % (11.8-14.3); White Blood Cell 6.6 10^3/uL (4.4-10.8)
[2023-10-28] MEDS ORDERED: METR-344 PO (18:27)
[2023-10-28] MEDS ORDERED: CIPR-173 PO (18:27)
[2023-10-28] MEDS: CIPROFLOXACIN HCL 500 MG TAB PO ONE (18:39)
[2023-10-28] MEDS: metroNIDAZOLE 500 MG TAB PO ONE (18:39)
[2023-10-28 18:41] VITALS: BP 129/64; TEMP 97.8
[2023-10-28 18:50] VITALS: PULSE 72; RESP 15; O2SAT 94
[2023-10-28 18:56] LABS: Albumin 4.7 g/dL (3.2-4.8); Alkaline Phosphatase 68 U/L (46-116); Anion Gap 10 (5-15); Aspartate Aminotransferase 13 U/L (13-40); BUN/Creatinine Ratio 13.8 (10.0-20.0); Bilirubin, Total 0.9 mg/dL (0.2-1.0); Blood Urea Nitrogen 9 mg/dL (9-23); Calcium 9.5 mg/dL (8.7-10.4); Carbon Dioxide 26 mmol/L (20-30); Chloride 103 mmol/L (98-107); Glucose 120 mg/dL (74-106); Lipase 29 U/L (12-53); Sodium 139 mmol/L (136-145); Total Protein 6.9 g/dL (5.7-8.2)
[2023-10-28 18:57] LABS: Alanine Aminotransferase < 9 U/L (7-40)
== END 2023-10-28 19:01 | disposition home or self-care (01) ==
LOC: EDBD 14:41 → ER 14:41
DX: K57.32 Diverticulitis of large intestine without perforation or abscess without bleeding (principal); I10 Essential (primary) hypertension; J44.9 Chronic obstructive pulmonary disease, unspecified; Z88.0 Allergy status to penicillin; Z91.041 Radiographic dye allergy status; Z79.899 Other long term (current) drug therapy
CPT/HCPCS: 36415; 74176; 80053; 81001; 83605; 83690; 84484; 85025